=== PATIENT | male | born 1945 | race Caucasian/White ===

== ENCOUNTER → 2019-01-07 08:24 | Outpatient (CLI) | payer MEDICARE ==
[2015-07-06 07:26] VITALS: BMI 25.2
[~2019-01-07 08:24] MED LIST: BAYER CHEWABLE81 MG PO; CARAFATE1 G PO; CELEXA40 MG PO; FLOMAX0.4 MG PO; HYDROCODONE-APA1 TAB PO; INDERAL LA160 MG PO; LOTENSIN20 MG; MYSOLINE250 MG PO; NORVASC5 MG PO; PRAVACHOL20 MG PO; PROTONIX40 MG PO; REQUIP1 MG PO
== END | disposition home or self-care (01) ==
LOC: D.RAD 08:24
PROVIDERS: ATTEND Internal Medicine Gastroenterology
DX: R13.10 Dysphagia, unspecified (principal); R12 Heartburn; R10.13 Epigastric pain

== ENCOUNTER → 2019-02-16 10:38 | Outpatient (CLI) | payer MEDICARE ==
[2015-07-06 07:26] VITALS: BMI 25.2
== END | disposition home or self-care (01) ==
LOC: D.HCCECHO 10:38
PROVIDERS: ATTEND Internal Medicine Cardiovascular Disease
DX: I10 Essential (primary) hypertension (principal)

== ENCOUNTER → 2019-04-05 09:15 | Outpatient (CLI) | payer MEDICARE ==
[2015-07-06 07:26] VITALS: BMI 25.2
== END | disposition home or self-care (01) ==
LOC: D.HCCARDIO 09:15
PROVIDERS: ATTEND Internal Medicine Cardiovascular Disease
DX: I25.10 Atherosclerotic heart disease of native coronary artery without angina pectoris (principal)

== ENCOUNTER 2019-04-20 10:49 | Outpatient (CLI) | payer MEDICARE ==
[~2019-04-20] VITALS: Ht 205.7 cm; Wt 109.1 kg
--- NOTE | ~2019-04-20 | HEMODYNAMI ---
PATIENT:ERINN LYNCH MEDICAL RECORD: [id number] : 49 LOCATION:[facility] ADMISSION DATE: 04/20/19 Generatedon:04/20/201913:33 Patient name: ERINN LYNCH Patient #: [id number] SSN: [id number] : 1945 Date of study: 04/20/2019 Page: Of Hemodynamic Procedure Report Patient Data Patient Demographics Procedure consent was obtained First Name: ERINN Gender: Male Last Name: CRIS : 1945 Middle Initial: F Age: 73 year(s) Patient #: [id number] Race: Unknown SSN: [id number] Additional ID: [id number] Contact details [address]: [address] [place] [address] rd State: [place] City: [place] Zip code: [address] Past Medical History Performed procedures and imaging results Date Procedure Procedure Results Comments Stress testing Positive->Intermediate with SPECT MPI risk History of disease Date Diagnosis Comments Valvular heart disease Allergies: No known allergies Admission Admission Data Admission Date: 04/20/2019 Admission Time: 10:49 Arrival Date: 04/20/2019 Arrival Time: 0:00 Height (in.): 72 BSA: 2.45 (m2) Height (cm.): 182.88 BMI: 37.57 (kg/m2) Weight (lbs.): 277 Weight (kg.): 125.65 Lab Results Lab Result Date: 04/20/2019 Lab Result Time: 0:00 Biochemistry Name Units Result Min Max BUN mg/dl 10 --(-*--)-- 7 18 Creatinine mg/dl 1 --(--*-)-- 0.6 1.3 eGFR ml/min 78 *-(----)-- 90 120 NONAFRICAN CBC Name Units Result Min Max Hematocrit % 37.6 *-(----)-- 42 54 Hemoglobin g/dl 12.6 -*(----)-- 13.5 17.5 Procedure Procedure Types Cath Procedure Diagnostic Procedure [facility] w/Coronaries Sedation Charges Moderate Sedation up to 15 minutes Procedure Description Procedure Date Procedure Date: 04/20/2019 Procedure Start Time: 13:13 Procedure End Time: 13:31 Procedure Staff Name Function Tod Samano MD Performing Physician Freya Levine RT Monitor Cleo Warren RT Scrub Gianluca Devine RN Nurse Lavern Bonds RT Monitor Procedure Data Cath Procedure Fluoroscopy Diagnostic fluoroscopy Total fluoroscopy Time: 3.2 time: 3.2 min min Diagnostic fluoroscopy Total fluoroscopy dose: dose: 1109 mGy 1109 mGy Contrast Material Contrast Material Type Amount (ml) Isovue 300 84 Entry Location Entry Primary Successful Side Size Upsize Upsize Entry Closure Espinosa ccessful Closure Location (Fr) 1 (Fr) 2 (Fr) Remarks Device Remarks Radial Right 6 Fr Mechanical artery Short Compression Estimated blood loss: 5 ml Diagnostic catheters Device Type Used For End Catheter Placement DIAGNOSTIC Milton 110cm Procedure 5Fr catheter ([id number]) Procedure Complications No complications Procedure Medications Medication Administration Route Dosage 0.9% NaCl I.V. 100 ml/hr Oxygen etCO2 Nasal cannula 2 l/min Heparin Flush Bag added to field 2 bags (1000units/500ml NS) Lidocaine 2% added to field 20 Radial Cocktail added to field 1 syringe (Verapamil 2mg/Nitro 400mcg/Heparin 1500units) Versed I.V. 1 mg Fentanyl I.V. 25 mcg Fentanyl I.V. 25 mcg Radial Cocktail I.A. 1 syringe (Verapamil 2mg/Nitro 400mcg/Heparin 1500units) Hemodynamics Rest BSA: 2.45 (m2) HGB: 12.6 (g/dl) O2 Consumption: Estimated: 283.87 (ml/min) O2 Co nsumption indexed: Estimated:115.87 (ml/min/m) Heart Rate: 71 (bpm) Pressure Samples Time Site Value (mmHg) Purpose Heart Use Rate(bpm) 13:16 LV 114/5,13 Snapshot 70 Gradients Valve Time Site Site Mean SEP/DFP Peak To Heart Use 1 2 (mmHg) (sec/min) Peak Rate (mmHg) (bpm) Aortic 13:16 LV AO 70 Snapshots Pre Cath Intra NCS Post Cath Vital Signs Time Heart Resp SPO2 etCO2 NIBP (mmHg) Rhythm Pain Sedation Rate (ipm) (%) (mmHg) Status Level (bpm) 13:02:04 71 17 95 38.9 151/90(113) Paced 0 (11) 10(A) , No pain 13:06:26 69 20 95 37.4 136/86(102) Paced 0 (11) 10(A) , No pain 13:10:49 71 16 94 41.1 138/76(94) Paced 0 (11) 10(A) , No pain 13:15:07 69 17 94 39.6 111/67(85) Paced 0 (11) 9(A) , No pain 13:19:21 69 14 93 32.9 123/75(101) Paced 0 (11) 9(A) , No pain 13:23:35 69 13 94 0 125/78(103) Paced 0 (11) 9(A) , No pain 13:27:53 69 16 94 28.4 136/82(99) Paced 0 (11) 10(A) , No pain Medications Time Medication Route Dose Verified Delivered Reason Notes Effectiveness by by 13:06:17 0.9% NaCl I.V. 100 Gianluca Gianluca Per ml/hr Nilson Devine physician RN RN 13:06:27 Oxygen etCO2 2 l/min Gianluca Gianluca for low 02 Nasal Lorigan Lorigan sats cannula RN RN 13:06:38 Heparin Flush added 2 bags Gianluca Gianluca used for Bag to Nilson Devine procedure (1000units/500ml RN RN NS) 13:06:55 Lidocaine 2% added 20ml Gianluca Gianluca for local to vial Lorigan Lorigan anesthetic RN RN 13:07:08 Radial Cocktail added 1 Gianluca Gianluca used for (Verapamil to syringe Lorigan Nilson procedure 2mg/Nitro field LA RN 400mcg/Heparin 1500units) 13:08:08 Versed I.V. 1 mg Gianluca Gianluca for sedation Nilson Devine RN RN 13:08:16 Fentanyl I.V. 25 mcg Gianluca Gianluca for sedation Nilson Devine RN RN 13:13:30 Fentanyl I.V. 25 mcg Gianluca Gianluca for sedation Nilson Devine RN RN 13:14:03 Radial Cocktail I.A. 1 Gianluca Tod for (Verapamil syringe Nilson Samano MD vasodilation 2mg/Nitro RN 400mcg/Heparin 1500units) Procedure Log Time Note 12:40:17 Informed consent obtained and on chart 12:40:35 Procedure Status Elective Heart Cath (OP). 12:40:37 Gianluca Devine RN sent for patient. Start room use. 12:40:38 Time tracking: Regular hours (M-F 7:00 - 5:00) 12:40:41 Plan of Care:Hemodynamics will remain stable., Cardiac rhythm will remain stable., Comfort level will be maintained., Respiratory function will remain adequate., Patient/ family verbilizes understanding of procedure., Procedure tolerated without complication., Recovers from procedure without complications.. 12:40:49 H&P Date Dictated: 03/29/2019 Within 30 days and on chart., H&P Addendum completed by physician on day of procedure. (MUST COMPLETE FOR ALL OUTPATIENTS). 12:40:54 Patient allergic to No known allergies 12:41:22 Lab Result : BUN 10 mg/dl 12:41:22 Lab Result : eGFR NONAFRICAN 78 ml/min 12:41:22 Lab Result : Creatinine 1 mg/dl 12:41:22 Lab Result : Hemoglobin 12.6 g/dl 12:41:22 Lab Result : Hematocrit 37.6 % 12:42:53 Stress Test: yes; abnormal ANTERIOR AND LATERAL 12:44:41 Risk of Mortality: .1 12:44:43 Risk of blood transfusion: .1 12:44:45 Risk of ALMA: .9 12:47:29 Patient Weight : 277 lbs 12:47:33 Patient Height : 72 inches 12:47:41 Arrival Date: 04/20/2019 12:00:00 AM 12:54:38 Patient received from Pre/Post Procedure Room to [facility] 1 Alert and oriented. Tansferred to table in Supine position. 12:54:45 Warm blankets applied, and cuong hugger turned on for patient comfort. 12:54:45 Correct patient and procedure confirmed by team. 12:54:46 ECG and BP/O2 sat monitors applied to patient. 13:00:47 Vital chart was started 13:01:04 Full Disclosure recording started 13:01:06 - 13:01:07 Pre-procedure instructions explained to patient. 13:01:08 Pre-op teaching completed and patient verbalized understanding. 13:01:11 Family in patients room. 13:01:15 Patient NPO since Midnight. 13:01:25 Is the patient allergic to Iodine/contrast media? No. 13:01:28 Was the patient premedicated? Yes 13:01:31 Is patient on blood thinner?No 13:01:37 Patient diabetic? No. 13:01:40 ----Pre-sedation anethsthesia assessment.---- 13:01:45 Previous problem with sedation/anesthesia? No ? 13:01:48 Snore? Yes 13:01:50 Sleep apnea? Yes 13:01:53 Deviated septum? No 13:01:55 Opens mouth fully? Yes 13:01:57 Sticks out tongue? Yes 13:02:17 Airway obstruction? Yes PT SAYS HE HAS SLEEP APNEA/ NO CPAP 13:02:22 Dentures? No ? 13:02:55 Pre procedure: right dorsailis pedis pulse 2+ Normal; easily identifiable; not easily obliterated 13:03:09 Patient pain scale 0/10 ?. 13:03:27 IV patent on arrival in left forearm with 0.9% NaCl at [facility]. 13:03:48 Lab results completed and on chart. 13:03:59 Right Radial & Right Groin area was prepped with chlora-prep and draped in sterile fashion 13:04:02 Alarms reviewed by R. N. 13:04:02 Sharps counted by scrub and verified by R.N. 13:05:01 Baseline sample Acquired. 13:05:11 Rhythm: sinus rhythm 13:05:36 Modified Diallo's test Ulnar < 7 seconds 13:06:17 0.9% NaCl 100 ml/hr I.V. was administered by Gianluca Devine RN; Per physician; Verbal order read back and verified. 13:06:27 Oxygen 2 l/min etCO2 Nasal cannula was administered by Gianluca Devine RN; for low 02 sats; Verbal order read back and verified. 13:06:38 Heparin Flush Bag (1000units/500ml NS) 2 bags added to field was administered by Gianluca Devine RN; used for procedure; Verbal order read back and verified. 13:06:55 Lidocaine 2% 20ml vial added to field was administered by Gianluca Devine RN; for local anesthetic; Verbal order read back and verified. 13:07:08 Radial Cocktail (Verapamil 2mg/Nitro 400mcg/Heparin 1500units) 1 syring e added to field was administered by Gianluca Devine RN; used for procedure; Verbal order read back and verified. 13:07:10 Physician arrived 13:07:15 --------ALL STOP TIME OUT------ 13:07:16 Final Timeout: patient, procedure, and site verified with staff and physician. All members of the team are in agreement. 13:07:19 Right Radial & Right Groin site verified by team. 13:07:26 Fire Safety Assessment: A--An alcohol-based skin anteseptic being used preoperatively., C--Open oxygen or nitrous oxide is being used., D--An ESU, laser, or fiber-optic light is being used. 13:07:31 Physical assessment completed. ASA score P 2 - A patient with mild systemic disease as per Tod Samano MD. 13:07:39 2) 60-89 Mildly reduced kidney function, and other findings (as for stage 1) point to kidney disease. 13:07:44 Maximum allowable contrast dose (3.7 X eGFR X 0.75)216 ml. 13:07:52 Sedation plan: IV Moderate Sedation Medication:Versed, Fentanyl 13:07:58 Use device set Radial Dx or PCI 13:08:00 ACIST Syringe (99456) opened to sterile field. 13:08:01 Medline Cath Pack ([id number]) opened to sterile field. 13:08:02 Bag Decanter (2002) opened to sterile field. 13:08:03 ACIST Hand Control (67470) opened to sterile field. 13:08:07 ACIST Manifold (11360) opened to sterile field. 13:08:08 Versed 1 mg I.V. was administered by Gianluca Devine RN; for sedation; Verbal order read back and verified. 13:08:10 MBrace Wrist Support ([id number]) opened to sterile field. 13:08:13 NEEDLE Cook 21G 4cm Radial (E18984) opened to sterile field. 13:08:15 EMERALD Guide Wire (948-121) opened to sterile field. 13:08:16 Fentanyl 25 mcg I.V. was administered by Gianluca Devine RN; for sedation; Verbal order read back and verified. 13:08:16 SHEATH 6FR RAIN (0579887) opened to sterile field. 13:11:46 Procedure started. 13:11:52 Zero performed for pressure channel P1 13:12:14 Zero performed for pressure channel P1 13:13:03 Local anesthetic to right radial artery with Lidocaine 2% by Tod Samano MD.INITIAL ACCESS ONLY 13:13:30 Fentanyl 25 mcg I.V. was administered by Gianluca Devine RN; for sedation; Verbal order read back and verified. 13:13:36 A 6 Fr Short sheath was inserted into the Right Radial artery 13:14:03 Radial Cocktail (Verapamil 2mg/Nitro 400mcg/Heparin 1500units) 1 syring e I.A. was administered by Tod Samano MD; for vasodilation; Verbal order read back and verified. 13:14:22 A DIAGNOSTIC Milton 110cm 5Fr catheter ([id number]) was advanced over the wire and used for Procedure. 13:15:41 Injector settings: Ml/sec: 5, Volume: 15, 13:16:22 LV hemodynamics recorded. 13:16:30 EF : 55 % 13:16:53 LV gram done using CHRISTIANSON 13:17:14 LCA angiography performed. 13:17:27 Injector settings: Ml/sec: 3, Volume: 6, 13:18:38 RCA angiography performed. 13:18:51 Injector settings: Ml/sec: 3, Volume: 6, 13:20:59 ACCDominant side:Right 13:26:20 Catheter removed. 13:26:57 Procedure ended.(Physican Out) 13:27:29 ZEPHYR LARGE TR BAND (017142) opened to sterile field. 13:27:43 Sheath removed intact; hemostasis achieved with Mechanical Compression to the Right Radial artery. 13:27:55 Contrast amount:Isovue 300 84ml. 13:27:59 Maximum allowable dose exceeded? No. 13:28:11 Fluoroscopy time 03.20 minutes. 13:28:21 Fluoroscopy dose: 1109 mGy 13:28:21 Flurop Dose total: 1109 13:28:31 Dose Area Product 17231 mGy/cm. 13:28:43 Sharps counted by scrub and verified by R.N. 13:28:49 [place] band inflated with 9cc of air. 13:28:52 Insertion/operative site no bleeding no hematoma. 13:29:03 Post right radial artery:stable 13:29:08 Post Procedure Pulses reassessed and unchanged 13:29:22 Post-procedure physical assessment completed. ASA score P 2 - A patient with mild systemic disease as per Tod Samano MD. 13:29:27 Post procedure rhythm: unchanged. 13:29:32 Estimated blood loss: 5 ml 13:29:34 Post procedure instruction explained to patient.Patient verbalizes understanding. 13:29:36 Patient needs reinforcement of post procedure teaching. 13:30:26 Procedure type changed to Cath procedure, Diagnostic procedure, LHC, LH C w/Coronaries, Sedation Charges, Moderate Sedation up to 15 minutes 13:30:28 Procedure and supply charges have been captured, reviewed, submitted an d are correct. 13:31:03 Procedure Complication : No complications 13:31:06 Vital chart was stopped 13:31:10 [facility] Findings: mild to moderate CAD (<70%) 13:31:15 Operative report dictated upon procedure completion. 13:31:17 See physician's report for complete and final results. 13:31:41 Report given to Pre/Post Procedure Room. 13:31:46 Patient transfered to Pre/Post Procedure Room with Stretcher. 13:31:50 Procedure ended. 13:31:50 Full Disclosure recording stopped 13:31:54 End room use (Document Last) Device Usage Item Name Manufacture Quantity Catalog Hospital Part Current Minima l Lot# / Number Charge Number Stock Stock Serial# Code ACIST Acist 1 71094 068192 188233 [id number] 20 Syringe Medical (15795) Systems Inc Medline Medline 1 [id number] 369534 84823 117782 5 Cath Pack ([id number]) Bag Microtek 1 257575 62522 405238 5 Decanter Medical Inc. () ACIST Hand Acist 1 77806 810746 782552 855532 5 Control Medical (42460) Systems Inc ACIST Acist 1 54449 932303 170913 452910 5 Manifold Medical (96351) Systems Inc MBrace Advanced 1 140-0250-00 589962 65018 252976 5 Wrist Vascular Support Dynamics ([id number]) NEEDLE Cook Cook Medical 1 V36035 802625 608209 316971 5 21G 4cm Radial (R72522) EMERALD Cardinal 1 502-455 185812 536925 902167 5 Guide Wire Health (502-455) SHEATH 6FR Cardinal 1 0230343 823240 1959765 211157 5 RAIN Health (9646758) DIAGNOSTIC Terumo 1 40-8563 197539 868161 549920 5 Milton 110cm 5Fr catheter (555537) ZEPHYR Cardinal 1 172499 451560 [id number] 669986 5 LARGE TR Health BAND (617099) Signature Audit [place] Stage Time Signature Unsigned Intra-Procedure 04/20/2019 Lavern 1:32:23 PM Vamshi RT(R) (CV) Intra-Procedure 04/20/2019 Gianluca 1:32:59 PM Nilson [place] Intra-Procedure 04/20/2019 Tod Samano MD 1:33:32 PM [facility] [address] [place] [address]
[2019-04-20 11:25] VITALS: BP 168/95; Ht 205.7 cm; Wt 109.1 kg
[2019-04-20] MEDS ORDERED: TRAZODONE HCL150 MG PO (11:37)
[2019-04-20] MEDS ORDERED: CATAPRES0.1 MG PO (11:38)
[2019-04-20] MEDS ORDERED: LOTENSIN20 MG PO (11:38)
[2019-04-20] MEDS ORDERED: WELLBUTRIN SR150 MG PO (11:39)
[2019-04-20 11:56] LABS: BASOPHILS 0.3 % (0-2); HEMATOCRIT 37.6 % (42.0-54.0); HEMOGLOBIN 12.6 g/dL (13.5-17.5); IMMATURE GRANULOCYTES 0.3 % (0-5); LYMPHOCYTES 33.7 % (15-50); MCH 26.7 pg (26.0-34.0); MCHC 33.5 g/dL (31.0-37.0); MCV 79.7 fL (80.0-100.0); MEAN PLATELET VOLUME 9.9 fL (7.4-10.4); MONOCYTES 6.4 % (2-11); NEUTROPHILS 58.3 % (40-80); PLATELET COUNT 198 10x3/uL (130-400); RBC 4.72 10x6/uL (4.20-6.10); RDW 15.4 % (11.5-14.5); WBC 3.9 10x3/uL (4.8-10.8)
[2019-04-20 11:59] LABS: ALT (SGPT) 27 U/L (10-68); CALC OSMOLALITY 274 mosm/kg (275-300); CALCIUM 8.1 mg/dL (8.5-10.1); CARBON DIOXIDE 31.6 mmol/L (21.0-32.0); CHLORIDE - SERUM 101 mmol/L (98-107); CHOL - HDL RATIO 3.5 ratio (2.3-4.9); CHOLESTEROL, TOTAL 134 mg/dL (0-200); GLUCOSE 96 mg/dL (74-106); HDL CHOLESTEROL 38 mg/dL (32-96); LDL CHOLESTEROL 65 mg/dL (0-100); LDL-HDL RATIO 1.7 ratio (1.5-3.5); POTASSIUM - SERUM 4.2 mmol/L (3.5-5.1); SODIUM 138 mmol/L (136-145); TRIGLYCERIDE 155 mg/dL (30-200); UREA NITROGEN 10 mg/dL (7-18); eGFR NON AFRICAN AMERICAN 78 mL/min (90-120)
--- NOTE | 2019-04-20 13:40 | NUR ---
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 PT SLEEPING BUT VERBALLY AROUSABLE. DENIES PAIN OR DISCOMFORT. IV PATENT INFUSING VIA L ARM PER ORDERS. PT PLACED ON CARDIAC MONITORS AND 02 VIA NC AT 2L. HR PACED, RATE 70, BP 124/74, RR 14, SAT 94. R WRIST W ZYPHER BAND AND IMMOBILIZER, DRESSING CDI NO BLEEDING OR S/S HEMATOMA NOTED. ARM PINK AND WARM, CAP REFILL BRISK. CALL LIGHT IN REACH, DAUGHTER AT BS.
--- NOTE | 2019-04-20 14:00 | NUR ---
PT SLEEPING COMFORTABLY. HR 70, BP 123/75, SAT 95. R ARM PINK AND WARM, CAP REFILL BRISK. ZBAND AND IMMOBILIZER IN PLACE, NO S/S HEMATOMA NOTED. CALL LIGHT IN REACH, DAUGHTER AT BS.
--- NOTE | 2019-04-20 14:40 | NUR ---
PT MORE AWAKE, DR ELIAS AT NO NEW ORDERS. DISCUSSED W DAUGHTER AND PT PROCEDURE RESULTS AND PLAN OF CARE. 4CC OF AIR REMOVED FROM Z BAND, NO BLEEDING OR S/S HEMATOMA NOTED. CAP REFILL BRISK. VSS. HOB ELEVATED, SANDWICH TRAY AND DRINK SERVED. CALL LIGHT AT REACH
--- NOTE | 2019-04-20 15:10 | NUR ---
PT DOING WELL, TOLERATED LUNCH W/O NAUSEA. 2 ADD'L CC AIR REMOVED FROM Z BAND, NO BLEEDING OR S/S HEMATOMA NOTED. VSS. CALL LIGHT IN REACH
--- NOTE | 2019-04-20 15:28 | NUR ---
DISCHARGE INSTRUCTIONS REVIEWED W PT AND DAUGHTER, BOTH VERBALIZED UNDERSTANDING. IV REMOVED W CATH INTACT, MONITORS AND O2 REMOVED. PT UP TO DRESS FOR DISCHAGE. R WRIST REMAINS W/O BLEEDING OR S/S HEMATOMA.
--- NOTE | 2019-04-20 15:40 | NUR ---
Z BAND REMOVED AND 2X2 AND TEGADERM DRESSING APPLIED. NO S/S HEMATOMA NOTED. PT DISCHARGE VIA WC TO DAUGHTER WAITING IN PRIVATE VEHICLE. PT HAD ALL BELONGINGS AND DISCHARGE PAPERWORK. PT VOIDED 300 CC CLEAR YELLOW URINE VIA URINAL BEFORE LEAVING.
== END 2019-04-20 15:40 | disposition home or self-care (01) ==
LOC: D.CATH 10:49
PROVIDERS: ATTEND Internal Medicine Cardiovascular Disease
DX: I25.119 Atherosclerotic heart disease of native coronary artery with unspecified angina pectoris (principal); R94.39 Abnormal result of other cardiovascular function study; I10 Essential (primary) hypertension; Z95.0 Presence of cardiac pacemaker; I34.0 Nonrheumatic mitral (valve) insufficiency

== ENCOUNTER → 2019-05-20 13:48 | Outpatient (CLI) | payer MEDICARE ==
[2019-04-20 11:25] VITALS: BMI 25.7
[~2019-05-20 13:48] MED LIST changes: +CATAPRES0.1 MG PO; +LOTENSIN20 MG PO; +TRAZODONE HCL150 MG PO; +WELLBUTRIN SR150 MG PO
== END | disposition home or self-care (01) ==
LOC: D.CT 13:00
PROVIDERS: ATTEND Family Medicine
DX: K56.0 Paralytic ileus (principal)

== ENCOUNTER → 2019-07-14 09:26 | Outpatient (CLI) | payer MEDICARE ==
[2019-04-20 11:25] VITALS: BMI 25.7
== END | disposition home or self-care (01) ==
LOC: D.RT 09:26
PROVIDERS: ATTEND Internal Medicine Pulmonary Disease
DX: J45.909 Unspecified asthma, uncomplicated (principal); R07.9 Chest pain, unspecified; R60.0 Localized edema